=== PATIENT | female | born 1990 | race Caucasian/White ===

== ENCOUNTER → 2016-08-14 | Outpatient (CLI) | payer OTHER ==
--- NOTE | 2016-08-14 11:55 | RADIOLOGY REPORT (SQ) ---
EXAM DESCRIPTION: DUPLEX ART/KESHIA FLOW COMPLETE COMPLETED DATE/TIME: 08/14/2016 10:36 am REASON FOR STUDY: ELEVATED BP COMPARISON: None. TECHNIQUE: Realtime and static grayscale images acquired. Selected color Doppler, velocities and spe ctral images recorded. LIMITATIONS: None. FINDINGS: RIGHT KIDNEY: RENAL ARTERY VELOCITIES: 84 Cm/sec. Segmental artery velocity 39 cm/sec. RENAL VEIN: Color doppler flow present, patent. VELOCITY RATIO: 0.9. Normal waveforms. KIDNEY: Normal size. No significant pathology. LEFT KIDNEY: RENAL ARTERY VELOCITIES: 83 cm/sec. Segmental artery velocity 32 cm/sec. RENAL VEIN: Color doppler flow present, patent. VELOCITY RATIO: 0.9. Normal waveforms. KIDNEY: Normal size. No significant pathology. BLADDER: Normal. OTHER: Gallstones. IMPRESSION: NO DOPPLER EVIDENCE OF HEMODYNAMICALLY SIGNIFICANT RENAL ARTERY STENOSIS. COMMENT: NORMAL RENAL ARTERY/AORTA VELOCITY RATIO IS LESS THAN OR EQUAL TO 3.5. TECHNICAL DOCUMENTATION: JOB ID: [id number] [employer]- All Rights Reserved
== END ==
LOC: RAD 08:39
PROVIDERS: ATTEND Physician Assistant Medical
DX: I10 Essential (primary) hypertension (principal)
CPT/HCPCS: 93975